=== PATIENT | female | born 1950 | race African-American/Black ===

== ENCOUNTER 2018-02-26 04:16 | Emergency (ER) | payer OTHER ==
[~2018-02-26] VITALS: Ht 160 cm; Wt 89.4 kg
[~2018-02-26 04:16] MED LIST: ADVAIR HFA115 MCG/21; AMLODIPINE BESYL5 MG; FLEXERIL PO; GLUCOTROL5 MG PO; METFORMIN HCL500 MG PO; VENTOLIN HFA 1818 GM; ZESTRIL5 MG
[2018-02-26 04:57] LABS: URINE BILIRUBIN NEGATIVE (Negative); URINE BLOOD 3+ (Negative); URINE CLARITY TURBID; URINE GLUCOSE-RANDOM* NEGATIVE (Negative); URINE KETONES NEGATIVE (Negative); URINE LEUKOCYTES-REFLEX NEGATIVE (Negative); URINE NITRITE-REFLEX NEGATIVE (Negative); URINE PROTEIN (DIPSTICK) 3+ (Negative); URINE SPECIFIC GRAVITY >= 1.030 (1.005-1.035)
[2018-02-26 04:58] LABS: URINE COLOR RED/BLOODY
[2018-02-26 05:02] LABS: CRYSTALS None Seen /LPF (None Seen); SQUAMOUS None Seen /LPF (0-3); URINE RBC >20 Many /HPF (0-2)
[2018-02-26 05:04] LABS: BACTERIA-REFLEX 1-9 Few /HPF (None Seen); CASTS None Seen /LPF (None Seen); URINE WBC-REFLEX None Seen /HPF (0-5)
[2018-02-26] MEDS ORDERED: PYRIDIUM100 M1 PO (05:15)
[2018-02-26] MEDS ORDERED: CIPROFLOXACIN500 M1 PO (05:15)
[2018-02-26 06:12] VITALS: BP 152/66
== END 2018-02-26 06:14 | disposition home or self-care (01) ==
LOC: ER 04:16
PROVIDERS: Emergency Medicine
DX: R31.9 Hematuria, unspecified (principal); R35.0 Frequency of micturition; I10 Essential (primary) hypertension; E11.9 Type 2 diabetes mellitus without complications

== ENCOUNTER 2018-10-28 17:45 | Emergency (ER) | payer OTHER ==
[~2018-10-28] VITALS: Ht 160 cm; Wt 87.5 kg
[~2018-10-28 17:45] MED LIST changes: +CIPROFLOXACIN500 M1 PO; +PYRIDIUM100 M1 PO
[2018-10-28] MEDS ORDERED: ULTRAM 50MG TAB50 MG PO (18:48)
[2018-10-28] MEDS ORDERED: KEFLEX500 M1 PO (18:48)
[2018-10-28 19:17] VITALS: BP 168/99
== END 2018-10-28 19:17 | disposition home or self-care (01) ==
LOC: ER 17:45
DX: S68.126A Partial traumatic metacarpophalangeal amputation of right little finger, initial encounter (principal); I10 Essential (primary) hypertension; E11.9 Type 2 diabetes mellitus without complications; W26.0XXA Contact with knife, initial encounter; Y93.G3 Activity, cooking and baking; Y92.89 Other specified places as the place of occurrence of the external cause; Y99.8 Other external cause status

== ENCOUNTER → 2019-05-12 | Outpatient (CLI) | payer OTHER ==
[~2019-05-12] MED LIST changes: +KEFLEX500 M1 PO; +ULTRAM 50MG TAB50 MG PO
== END ==
LOC: CAT 09:17
DX: Z13.6 Encounter for screening for cardiovascular disorders (principal)

== ENCOUNTER 2021-07-12 08:33 | Emergency (ER) | payer OTHER ==
[~2021-07-12] VITALS: Ht 160 cm; Wt 88.5 kg
[2021-07-12] MEDS ORDERED: NAPROSYN500 MG PO (09:34)
[2021-07-12 09:54] VITALS: BP 167/101
== END 2021-07-12 09:54 | disposition home or self-care (01) ==
LOC: ER 08:33
DX: S92.511A Displaced fracture of proximal phalanx of right lesser toe(s), initial encounter for closed fracture (principal); I10 Essential (primary) hypertension; E11.9 Type 2 diabetes mellitus without complications; Z79.84 Long term (current) use of oral hypoglycemic drugs; Z79.51 Long term (current) use of inhaled steroids; Z79.891 Long term (current) use of opiate analgesic; Z79.899 Other long term (current) drug therapy; W18.40XA Slipping, tripping and stumbling without falling, unspecified, initial encounter; Y93.89 Activity, other specified; Y92.89 Other specified places as the place of occurrence of the external cause; Y99.8 Other external cause status